=== PATIENT | male | born 1990 | race African-American/Black ===

== ENCOUNTER 2024-04-29 02:25 | Emergency (ER) | payer BC, SELFPAY ==
[2024-04-29 02:32] VITALS: BP 162/91; PULSE 97; RESP 16; TEMP 36.8; O2SAT 98; BMI 28.1
--- NOTE | 2024-04-29 03:32 | ED.HA ---
HPI - Headache General Date Seen: 04/29/24 Chief Complaint: Headache/Migraine Stated Complaint: migraine Time Seen by Provider: 04/29/24 03:11 History of Present Illness HPI Narrative: Patient is a 34-year-old male who comes in with headache that is gone on for the past month. He has been seen in urgent care as well as seen in the clinic. No diagnostic tests have been done. Initially he was recommended Tylenol and at his clinic visit he was told to switch to ibuprofen. He has been taking that a couple of times a day with minimal improvement. Tonight the headache was so severe that he was feeling dizzy and unable to sleep. He has had no fevers. No sinus drainage. He does have some occipital tenderness and states that his head feels heavy. No neurologic concerns. No confusion. No head trauma. Prior to this past month he did not have any significant issues with headache. He has no chronic health problems and takes no medications regularly. He has a remote history of GERD that was self-limited. He works as a [employer] at a local [employer]. Related Data Previous Rx's ?Medication ?Instructions ?Recorded cyclobenzaprine 10 mg tablet 10 mg PO HS PRN headache #20 tabs 04/29/24 Allergies Allergy/AdvReac Type Severity Reaction Status Date / Time No Known Drug Allergies Allergy Verified 04/29/24 02:36 Review of Systems Narrative: Review of systems is outlined above otherwise noted to be negative. [facility] Social History (Updated 04/10/24 @ 13:44 by Georgette Fitzgerald~[facility] What is your current living situation?: I presently have a place to live Problems where you live: no known problems In the past 12 months, utilities in danger of being shut off: yes In past 12 months, lack of transportation kept you from medical appts, meetings, work, or getting things needed for daily living: no In the past 12 mos, have been you worried that your food would run out before you had money to buy more?: never true In the past 12 mos, the food you bought just didn't last and you didn't have money to buy more?: sometimes true How often does anyone, including family, friends and others, physically hurt you: never How often does anyone, including family, friends and others, insult or talk down to you: never How often does anyone, including family, friends and others, threaten you with harm: never How often does anyone, including family, friends and others, scream or curse at you: never Health Related Social Needs: food insecurity (Z59.41) Exam Narrative: Exam Narrative: Vitals noted. HEENT: Conjunctiva clear. Funduscopic exam is normal. Tympanic membranes are pearly white bilaterally. Posterior pharynx is clear without erythema or exudate. Neck is supple without adenopathy, thyromegaly, carotid bruit. Full range of motion of the cervical spine. He has some tenderness at the occipital insertion. Lungs: Clear to auscultation in all wilkes. No wheezes, rales, rhonchi. Heart: Regular rate and rhythm without murmur. Extremities: No cyanosis or edema. Good distal pulses. Skin: No abnormalities noted of the exposed skin. Neurologic: Awake, alert, fully oriented. Neurologic exam is nonfocal. Const: Vital Signs, click to edit/add: Vital Signs - 24 hr 04/29/24 02:32 Temperature 98.2 F Pulse Rate [Right Pulse Oximeter] 97 Respiratory Rate 16 Blood Pressure [Le ft Upper Arm] 162/91 H Pulse Oximetry 98 Oxygen Delivery Me thod Room Air Course Course ED Course: Patient seen and examined. IV is established he is given a L of normal saline, Toradol 30 mg IV, Tylenol [address] and labs are ordered. Reevaluation(s) Reevaluation #1: CT is normal. CBC is normal. Basic metabolic panel is normal. Magnesium is normal. CRP is negative. TSH is 4.51 with a free T4 of 1.15. Patient's headache was not improved with the initial Tylenol and Toradol. He was given oxycodone 5 mg orally with some improvement. I suspect that this headache is muscle tension. He is reassured by the negative imaging and lab findings. He will start using muscle relaxer at bedtime and continue Tylenol. I have added naproxen 500 mg b.i.d. to replace the ibuprofen. He may need physical therapy referral if his headaches persist. Vital Signs Vital signs: Initial Vital Signs Temperature 98.2 F 04/29/24 02:32 Temperature Source Temporal Artery Scan 04/29/24 02:32 Pulse Rate 97 04/29/24 02:32 Pulse Rhythm Regular 04/29/24 02:32 Pulse Strength 3+ Normal 04/29/24 02:32 Respiratory Rate 16 04/29/24 02:32 Blood Pressure 162/91 H 04/29/24 02:32 Blood Pressure Mean 114 H 04/29/24 02:32 Blood Pressure Position Sitting 04/29/24 02:32 Pulse Oximetry 98 04/29/24 02:32 Oxygen Delivery Method Room Air 04/29/24 02:32 Vital Signs Temperature 98.2 F 04/29/24 02:32 Pulse Rate 97 04/29/24 02:32 Respiratory Rate 16 04/29/24 02:32 Blood Pressure 162/91 H 04/29/24 02:32 Pulse Oximetry 98 04/29/24 02:32 Oxygen Delivery Method Room Air 04/29/24 02:32 Temperature 98.2 F 04/29/24 02:32 Pulse Rate 97 04/29/24 02:32 Respiratory Rate 16 04/29/24 02:32 Blood Pressure 162/91 H 04/29/24 02:32 Pulse Oximetry 98 04/29/24 02:32 Oxygen Delivery Method Room Air 04/29/24 02:32 Medications Administered Medications: Discontinued Medications Generic Name Dose Route Start Last Admin Trade Name Freq PRN Reason Stop Dose Admin Acetaminophen 1,000 mg 04/29/24 03:21 04/29/24 03:40 Acetaminophen 500 Mg Tablet PO 04/29/24 03:22 1,000 mg ONCE ONE Administration Sodium Chloride 500 mls @ 1,000 mls/hr 04/29/24 03:22 04/29/24 04:45 0.9 % Sodium Chloride 500 Ml IV 04/29/24 03:51 1,000 mls/hr .Q30M SERGIO Administration Ketorolac Tromethamine 30 mg 04/29/24 03:21 04/29/24 04:44 Ketorolac 30 Mg/Ml Inj IVP 04/29/24 03:22 30 mg ONCE ONE Administration Oxycodone HCl 5 mg 04/29/24 04:41 04/29/24 04:45 Oxycodone 5 Mg Tablet PO 04/29/24 04:42 5 mg ONCE ONE Administration MDM - Headache Lab Data Labs: Lab Results 04/29/24 Range/Units 03:41 WBC 8.80 (4.50-11.00) K/uL RBC 5.10 (4.30-5.90) m/uL Hgb 15.2 (13.5-17.5) gm/dL Hct 44.6 (37.0-53.0) % MCV 88 (80-100) fL MCH 30 (26-34) pg MCHC 34 (32-36) gm/dL RDW Coeff of David 12.1 (11.5-15.5) % Plt Count 204 (140-440) K/uL Neut % (Auto) 47.1 (42.0-72.0) % Lymph % (Auto) 36.4 (20-44) % [place] % (Auto) 10.2 (0.0-11.0) % Eos % (Auto) 5.3 (0.0-7.0) % Baso % (Auto) 0.5 (0.0-3.0) % Neut # (Auto) 4.15 (1.7-7.0) K/uL Lymph # (Auto) 3.20 H (0.90-2.90) K/uL Shawnee # (Auto) 0.90 (0.00-0.90) K/UL Eos # (Auto) 0.47 (0.00-0.50) K/uL Baso # (Auto) 0.04 (0.00-0.30) K/uL Abs Immat Gran (auto) 0.04 (0.00-0.30) K/uL Imm/Tot Granulo (auto) 0.5 % Sodium 139 (135-149) mmol/L Potassium 3.6 (3.6-5.1) mmol/L Chloride 103 (96-114) mmol/L Carbon Dioxide 27 (20-32) mmol/L Anion Gap 9 (7-15) mEq/L BUN 12 (5-24) mg/dL Creatinine 1.1 (0.5-1.5) mg/dL Estimated Creat Clear 93.73 Estimated GFR 90 ml/min Glucose 108 (60-115) mg/dL Calcium 9.7 (8.4-10.6) mg/dL Magnesium 2.2 (1.5-2.6) mg/dL C-Reactive Protein < 0.5 L (0.5-1.0) mg/dL TSH 4.510 H (0.270-4.200) uIU/mL Free T4 1.15 (0.70-1.85) ng/dL Discharge Plan Discharge Clinical Impression: Headache Patient Disposition: Home, Self-Care Condition: Stable Instructions: Acute Headache (ED) Additional Instructions: Naproxen 500 mg twice a day along with Tylenol 1000 mg twice a day. Rest, ice, massage. Flexeril 10 mg at bedtime. Follow up in the clinic if no better in 5 days to discuss a PT referral. Activity Level: No Restrictions Discharge Diet: Regular Prescriptions: New cyclobenzaprine 10 mg tablet 10 mg PO HS PRN (Reason: headache) Qty: 20 0RF Follow Up/Referrals: Provider,Not a Local [Primary Care Provider] - Stand Alone Forms: Rachio Info Instructions
[2024-04-29] MEDS: ACETAMINOPHEN 500 MG TABLET 1000 MG PO (03:40)
--- OUTSIDE RECORDS SUMMARY | 2024-04-29 03:40 | XMS_ITS | Clinical Summary ---
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 Role Phone Pcp, No Primary Care Provider Unavailabl e Allergies No known active allergies Medications No known medications Social History Tobacco Use Types Packs/Day Years Used Date Smoking Tobacco: Never Smokeless Tobacco: Never Alcohol Use Standard Drinks/Week Comments Not Currently 0 (1 standard drink = 0.6 oz pur e alcohol) Social Connections Answer Date Recorded Frequency of Communication with Friends and Fami ly Not on file 01/28/2022 Sex and Gender Information Value Date Recorded Sex Assigned at Not on file 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 Gender Identity Not on file Sexual Orientation Not on file Obstetrics History Last Filed Vital Signs Vital Sign Reading Time Taken Comments Blood Pressure 130/72 01/28/2022 10:10 AM REAL ESTATE ADMINISTRATOR Pulse 75 01/28/2022 10:10 AM REAL ESTATE ADMINISTRATOR Temperature - - Respiratory Rate - - Oxygen Saturation 99% 01/28/2022 10:10 AM REAL ESTATE ADMINISTRATOR Inhaled Oxygen Concentration - - Weight 76.5 kg (168 lb 9.6 oz) 01/28/2022 10:10 AM REAL ESTATE ADMINISTRATOR Height 177.8 cm (5' 10) 01/28/2022 10:10 AM REAL ESTATE ADMINISTRATOR Body Mass Index 24.19 01/28/2022 10:10 AM REAL ESTATE ADMINISTRATOR Plan of Treatment Health Maintenance Due Date Last Done Comments Tdap 2000 Depression screening for age 12+ 2001 HIV for age 15-65 2004 Hepatitis C screening for ag e 18-79 2007 Tetanus booster 2009 BMI (ht and wt on same day) for age 18+ 01/28/2023 01/28/2022 COVID-19 vaccine series (2023- season) 2023 Influenza for age 9-49 10/31/2023 Lipids for age 35-44 2024 Pneumococcal series for age 6-49 Aged Out No longer eligible based on patient's age to complete this topic Care Teams 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 PCP - General 01/27/22
[2024-04-29 03:45] LABS: Basophils Absolute Auto 0.04 K/uL (0.00-0.30); Basophils Percent Auto 0.5 % (0.0-3.0); Eosinophils Absolute Auto 0.47 K/uL (0.00-0.50); Eosinophils Percent Auto 5.3 % (0.0-7.0); Hematocrit 44.6 % (37.0-53.0); Hemoglobin* 15.2 gm/dL (13.5-17.5); Immature Granulocytes Abs Auto 0.04 K/uL (0.00-0.30); Immature Granulocytes Pct Auto 0.5 %; Lymphocytes Percent Auto 36.4 % (20-44); Mean Corpuscular HGB Conc 34 gm/dL (32-36); Mean Corpuscular Hemoglobin 30 pg (26-34); Mean Corpuscular Volume 88 fL (80-100); Monocytes Percent Auto 10.2 % (0.0-11.0); Neutrophils Absolute Auto 4.15 K/uL (1.7-7.0); Neutrophils Percent Auto 47.1 % (42.0-72.0); Platelet Count* 204 K/uL (140-440); RDW Coefficient of Variation % 12.1 % (11.5-15.5)
[2024-04-29 03:47] LABS: Slide Review Reflex No
[2024-04-29 03:57] LABS: Chloride* 103 mmol/L (96-114); Potassium* 3.6 mmol/L (3.6-5.1)
[2024-04-29 03:59] LABS: Blood Urea Nitrogen* 12 mg/dL (5-24); Creatinine* 1.1 mg/dL (0.5-1.5); Est. Creatinine Clearance* 93.73; Estimated Glomerular Filt Rate 90 ml/min; Sodium* 139 mmol/L (135-149)
[2024-04-29 04:00] LABS: Anion Gap 9 mEq/L (7-15); Calcium* 9.7 mg/dL (8.4-10.6); Carbon Dioxide* 27 mmol/L (20-32); Glucose* 108 mg/dL (60-115); Magnesium* 2.2 mg/dL (1.5-2.6)
[2024-04-29 04:04] LABS: C Reactive Protein* < 0.5 mg/dL (0.5-1.0)
[2024-04-29] MEDS: KETOROLAC 30 MG/ML inj IVP (04:44)
[2024-04-29] MEDS: OXYCODONE 5 MG TABLET PO (04:45)
[2024-04-29] MEDS: 0.9 % SODIUM CHLORIDE 500 ML 500 ML 1000 ML IV (04:45)
[2024-04-29 05:16] LABS: Free T4 Free Thyroxine* 1.15 ng/dL (0.70-1.85)
== END 2024-04-29 04:49 | disposition home or self-care (01) ==
PROVIDERS: Emergency Provider Family Medicine
DX: R51.9 Headache, unspecified (principal)
CPT/HCPCS: 36415; 70450; 80048; 83735; 84439; 84443; 85025; 86140; 96374; 99282; 99284; A9270; J1885; J7030

== ENCOUNTER 2024-08-01 13:41 | Outpatient (CLI) | payer BC, SELFPAY | END 2024-08-01 13:42 | disposition home or self-care (01) | PROVIDERS: PCP Family Medicine; Visit Provider Family Medicine | DX: I10 Essential (primary) hypertension (principal) | CPT/HCPCS: 80048; 84443 ==